=== PATIENT | male | born 1985 | race Caucasian/White ===

== ENCOUNTER → 2022-05-30 12:43 | Outpatient (BNVA) | payer BC, MEDICAID, SELFPAY | PROVIDERS: Visit Provider Nurse Practitioner | DX: R06.02 Shortness of breath (principal) | CPT/HCPCS: 71046 ==

== ENCOUNTER 2024-01-26 18:47 | Inpatient (IN) | payer SELFPAY ==
[2024-01-26] VITALS (11 sets, daily range): BP systolic 102–147; BP diastolic 59–81; PULSE 83–113; RESP 13–24; TEMP 36.5–36.6; O2SAT 92–100; BMI 25.0; BMI 23.7
[2024-01-26 19:54] LABS: Basophils % 0.3 %; Eosinophils # 0.1 10^3/uL (0.0-0.8); Eosinophils % 0.9 %; Hematocrit 37.1 % (37-53); Lymphocytes # 1.7 10^3/uL (0.8-4.8); Lymphocytes % 16.1 %; Mean Corpuscular HGB Conc 37.7 g/dL (30-55); Mean Corpuscular Hemoglobin 38.9 pg (27-33); Mean Corpuscular Volume 103.1 fl (82-101); Mean Platelet Volume 9.7 fL (7.4-10.4); Monocytes # 1.5 10^3/uL (0.2-0.9); Monocytes % 14.4 %; Neutrophils # 7.12 10^3/uL (1.8-7.7); Neutrophils % 67.4 %; Nucleated Red Blood Cells # 0.1 /100WBC; Nucleated Red Blood Cells % 0.9 %; Platelet Count 262 10^3/cmm (157-399); Red Cell Distribution Width 13.2 % (12.1-15.1); White Blood Count 10.56 10^3/uL (3.29-11.43)
[2024-01-26 20:23] LABS: Alanine Aminotransferase 147 U/L (0-41); Albumin Level 4.5 g/dL (3.5-5.2); Alcohol Level 60 mg/dL (0-10); Alkaline Phosphatase 115 U/L (40-130); Anion Gap 24.1 (5-19); Aspartate Amino Transferase 148 U/L (0-40); Blood Urea Nitrogen 38 mg/dL (6-20); Calcium 10.1 mg/dL (8.5-10.5); Carbon Dioxide 28 mmol/L (22-29); Chloride 77 mmol/L (98-107); Creatinine Clr Calc Pharmacy 85.4355; Globulin 3.2 g/dL (1.3-4.6); Glomerular Filtration Rate 68.5 mL/min (90-130); Glucose 144 mg/dL (65-115); Lipase 101 U/L (13-60); Magnesium 2.5 mg/dL (1.7-2.3); Osmolality Calculated 276 mOsm/kg (285-295); Sodium 127 mmol/L (136-145); Thyroid Stimulating Hormone 8.62 uIU/mL (0.27-4.20); Total Bilirubin 1.1 mg/dL (0.15-1.2); Total Protein 7.7 g/dL (6.6-8.7)
[2024-01-26 20:33] LABS: Potassium 2.1 mmol/L (3.5-5.1)
--- NOTE | 2024-01-26 20:48 | ED_ITS ---
HPI - Weakness 2 General: Chief complaint: Weakness Stated complaint: Dehydration, Hard time waalking, Fatiuge, N/V Time Seen by Provider: 01/26/24 20:36 Source: patient Mode of arrival: ambulatory Limitations: no limitations History of Present Illness: 38-year-old male who is a chronic alcoho lic states he has not seen a physician in years states that he has been having increasing weakness. He states that he has been having a hard time walking and is feeling extremely weak and fatigued. Denies any vomiting or diarrhea. Denies any fevers. Associated symptoms: Denies chest pain, chills, fever(s), headache(s), nausea or vomiting Review of Systems 2 Const: Reports: fatigue and malaise; Denies: fever(s), chills, body aches or change in appetite ENMT: Denies: throat pain or dental pain Card: Denies: chest pain Resp: Denies: dyspnea GI: Denies: abdominal pain, nausea, vomiting or diarrhea Musc: Denies: neck pain or back pain Skin/Breast: Denies: rash Neuro: Denies: headache(s) Physical Exam 2 Const: COMMON NORMALS: patient oriented x3 GENERAL APPEARANCE: ill appearing HENMT: COMMON NORMALS: normocephalic and atraumatic HEAD & SCALP: n ormocephalic and atraumatic Eye: COMMON NORMALS: Equal, round and reactive pupils present and EOMs intact bilaterally PUPIL: Yes Equal, round and reactive pupils present Neck/C-Spine: COMMON NORMALS: full ROM and supple Chest: COMMONS NORMALS: normal inspection of the chest Resp: COMMON NORMALS: normal respiratory effort, No retractions, No use of accessory muscles and clear to auscultation bilaterally AUSCULTATION: clear to auscultation bilaterally Cardio: COMMON NORMALS: regular rhythm and No murmurs present (Cardio) R ATE: tachycardic RHYTHM: regular rhythm Extremity: COMMON NORMALS: normal to inspection and full ROM Neuro: COMMON NORMALS: patient oriented x3, moves all extremities and no focal motor deficits Psych: COMMON NORMALS: mental status grossly normal, Normal thought process present and cooperative THOUGHT PROCESS: Normal thought process present Skin: COMMON NORMALS: no rashes or lesions noted and no wounds GENERAL SKIN EXAM: no rashes or lesions noted Course 2 Vital Signs: Vital signs: Vital Signs Temperature 98 F 01/26/24 19:00 Pulse Rate 113 H 01/26/24 21:00 Respiratory Rate 15 01/26/24 21:00 Blood Pressure 102/59 01/26/24 19:00 Pulse Oximetry 100 01/26/24 21:00 Oxygen Delivery Me thod Room Air 01/26/24 21:00 MDM - Weakness Medical Decision Making Patient presents here with weakness he is found to be profoundly hypokalemic with a potassium of 2.1 likely malnourished from his alcoholism had some slight tachycardia here no tremors no signs of active withdrawal as did give him thiamine along with a multivitamin did give him some Ativan and will replace potassium spoke to the hospitalist will admit to ICU Medical Records I reviewed the patient's medical records. Lab Data I reviewed the patient's lab results. 01/26/24 19:26 01/26/24 19:26 Laboratory Results WBC 10.56 10^3/uL (3.29-11.43) 01/26/24 19:26 RBC 3.60 10^6/uL (3.85-5.65) L 01/26/24 19:26 Hgb 14.00 g/dL (11.27-16.99) 01/26/24 19:26 Hct 37.1 % (37-53) 01/26/24 19:26 MCV 103.1 fl (82-101) H 01/26/24 19:26 MCH 38.9 pg (27-33) H 01/26/24 19:26 MCHC 37.7 g/dL (30-55) 01/26/24 19:26 RDW 13.2 % (12.1-15.1) 01/26/24 19:26 Plt Count 262 10^3/cmm (157-399) 01/26/24 19:26 MPV 9.7 fL (7.4-10.4) 01/26/24 19:26 Neut % (Auto) 67.4 % 01/26/24 19:26 Lymph % (Auto) 16.1 % 01/26/24 19:26 [place] % (Auto) 14.4 % 01/26/24 19:26 Eos % (Auto) 0.9 % 01/26/24 19:26 Baso % (Auto) 0.3 % 01/26/24 19:26 Neut # (Auto) 7.12 10^3/uL (1.8-7.7) 01/26/24 19:26 Lymph # (Auto) 1.7 10^3/uL (0.8-4.8) 01/26/24 19:26 [place] # (Auto) 1.5 10^3/uL (0.2-0.9) H 01/26/24 19:26 Eos # (Auto) 0.1 10^3/uL (0.0-0.8) 01/26/24 19:26 Baso # (Auto) 0.0 10^3/uL (0.0-0.1) 01/26/24 19:26 Nucleated RBC % (auto) 0.9 % 01/26/24 19:26 Nucleated RBCs # 0.1 /100WBC 01/26/24 19:26 Sodium 127 mmol/L (136-145) L 01/26/24 19:26 Potassium 2.1 mmol/L (3.5-5.1) L* 01/26/24 19:26 Chloride 77 mmol/L (98-107) L 01/26/24 19:26 Carbon Dioxide 28 mmol/L (22-29) 01/26/24 19:26 Anion Gap 24.1 (5-19) H 01/26/24 19:26 BUN 38 mg/dL (6-20) H 01/26/24 19:26 Creatinine 1.2 mg/dL (0.7-1.2) 01/26/24 19:26 GFR Calculation 68.5 mL/min (90-130) L 01/26/24 19:26 Glucose 144 mg/dL (65-115) H 01/26/24 19:26 Calculated Osmolality 276 mOsm/kg (285-295) L 01/26/24 19:26 Calcium 10.1 mg/dL (8.5-10.5) 01/26/24 19:26 Magnesium 2.5 mg/dL (1.7-2.3) H 01/26/24 19:26 Total Bilirubin 1.1 mg/dL (0.15-1.2) 01/26/24 19:26 AST 148 U/L (0-40) H 01/26/24 19:26 ALT 147 U/L (0-41) H 01/26/24 19:26 Alkaline Phosphatase 115 U/L (40-130) 01/26/24 19:26 Total Protein 7.7 g/dL (6.6-8.7) 01/26/24 19:26 Albumin 4.5 g/dL (3.5-5.2) 01/26/24 19:26 Globulin 3.2 g/dL (1.3-4.6) 01/26/24 19:26 Lipase 101 U/L (13-60) H 01/26/24 19:26 TSH 8.62 uIU/mL (0.27-4.20) H 01/26/24 19:26 Ethyl Alcohol 60 mg/dL (0-10) H 01/26/24 19:26 No radiology studies performed this visit EKG Data EKG 1: I personally reviewed and interpreted this EKG as follows: EKG interpretation date: 01/26/24 EKG interpretation time: 20:53 Interpretation: sinus tach hr [address] elevation qrs 110 qtc 464 Critical Care Time 2 Critical Care Time: Critical Care Time: Yes Total Critical Care Time: 45 Attestation: The high probability of a clinically significant, sudden or life threatening deterioration of the patient's electrolytes system(s) required my full and direct attention, intervention and personal management. The critical care time is as shown. This time is in addition to time spent performing any reported procedures but includes the following: [x] Data and vital sign review and interpretation [x] Patient assessment, examination and intervention [x] Documentation [x] Medication orders and management Discharge Plan Discharge Patient Disposition: Admitted As Inpatient Clinical Impression: Hypokalemia, Alcoholism Condition: Stable Prescriptions: No Action doxycycline hyclate 100 mg capsule 100 mg PO BID 7 Days Qty: 14 0RF prednisone 20 mg tablet 20 mg PO DAILY 7 Days Qty: 7 0RF albuterol sulfate [Ventolin HFA] 90 mcg/actuation HFA aerosol inhaler 2 puff inhalation Q6H PRN (Reason: shortness of breath or wheezing) Qty: 8.5 0RF Coding Level of Care Code ED [employer]
--- NOTE | 2024-01-26 20:53 | ECG_ITS ---
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 Measurements Intervals [place] Rate: 106 P: 71 WA: 130 QRS: 72 QRSD: 110 T: 76 QT: 402 QTc: 536 Interpretive Statements SINUS TACHYCARDIA POSSIBLE RIGHT ATRIAL ENLARGEMENT [0.25mV P-WAVE] POSSIBLE LEFT ATRIAL ENLARGEMENT [-0.1mV P-WAVE IN V1/V2] INCOMPLETE RIGHT BUNDLE BRANCH BLOCK [90+ ms QRS DURATION, TERMINAL R IN V1/V2, 40+ ms S IN I/aVL/V4/V5/V6] NONSPECIFIC ST & T-WAVE ABNORMALITY ABNORMAL RHYTHM ECG No previous ECG available for comparison Electronically Signed On 01-27-2024 0:39:50 CDT by Jose Jimenez M.D. [id number]
[2024-01-26] MEDS: ondansetron 2 mg/ML SDV 2 mL 4 MG IVP (21:00)
[2024-01-26 21:01] LABS: Slide Review Slide Review Perform
[2024-01-26] MEDS: potassium chloride ER 20 mEq Tablet 80 MEQ PO (21:01)
[2024-01-26] MEDS: multivitamin therapeutic Tablet 1 TAB PO (21:01)
[2024-01-26] MEDS: sodium chloride 0.9% 1,000 ML 999 ML IV (21:01)
[2024-01-26] MEDS: LORazepam 2 mg/mL INJ 10 mL MDV 1 MG IVP (21:01)
[2024-01-26] MEDS: lidocaine 1% 5 ML in potassium chloride premix 100 ML 26.25 ML IV (21:03)
--- NOTE | 2024-01-26 21:23 | P.HP_ITS ---
Providers/Chief Complaint 2 Admitting Physician: Carlo Thomas MD Chief Complaint: Dehydration, Hard time waalking, Fatiuge, N/V History of Present Illness Alphonso Rae is a 38 year old male with a past medical history significant for alcohol use disorder who presents emergency department with diffuse weakness and altered mentation x 3 to 4 days. Patient reports he was in his usual state of health until about 3 to 4 days ago. He states that he has been confused and extremely weak. He reports that his family encouraged him to seek treatment. He notes that he uses alcohol daily. He states that his alcohol use is typically 2 beers per day. He reports occasional liquor use but none recently. Reports his last drink was yesterday. Ethyl alcohol level in the emergency department today was 60 mg/dL. He reports that he typically does have withdrawals when he quits drinking. He states last time he quit it took about a week to get better. He did not seek medical care at that time. He denies prior hospitalizations for alcohol withdrawal. Currently endorses associated nausea. Denies fevers or chills. In the emergency department, patient was found to be tachycardic. Blood pressure soft. Labs revealed macrocytosis, hyponatremia, hypochloremia, severe hypokalemia, azotemia, elevated liver function enzymes, and elevated TSH to 8.62. He was treated with IV thiamine, IV fluid bolus, p.o. and IV potassium replacement. Review of Systems 2 Narrative: A complete review of systems was obtained and is negative except as stated in HPI. Medications/Allergies Home Medications Medication Instructions Recorded Confirmed Last Taken Type albuterol sulfate 90 mcg/actuation 2 puff inhalation Q6H PRN 05/30/22 05/30/22 Unknown Rx aerosol inhaler (Ventolin HFA) shortness of breath or wheezing #8.5 grams doxycycline hyclate 100 mg capsule 100 mg PO BID 7 days #14 caps 05/30/22 05/30/22 Unknown Rx prednisone 20 mg tablet 20 mg PO DAILY 7 days #7 tabs 05/30/22 05/30/22 Unknown Rx Allergies Allergy/AdvReac Type Severity Reaction Status Date / Time No Known Allergies Allergy Unverified 05/30/22 12:13 PFSH Acute 2 PFSH: Medical History (Updated 01/26/24 @ 21:58 by Cralo Thomas MD) Tobacco use disorder Alcohol use disorder Surgical History (Updated 01/26/24 @ 21:49 by Carlo Thomas MD) Hx of foot surgery Family History (Updated 01/26/24 @ 21:50 by Carlo Thomas MD) Brother Alcohol dependence Social History (Updated 01/26/24 @ 21:55 by Carlo Thomas MD) Smoking and tobacco/nicotine status: current every day tobacco/nicotine user Alcohol intake: current Substance/Drug Use: never 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 Vitals/I&O/Wt Last Vital Signs Temp 98 F 01/26/24 19:00 Pulse 113 H 01/26/24 21:00 Resp 15 01/26/24 21:00 BP 102/59 01/26/24 19:00 Pulse Ox 100 01/26/24 21:00 O2 Del Method Room Air 01/26/24 21:00 Weight last 48 hrs Weight 74.843 kg Physical Exam 2 Narrative: General: Patient is awake. Head: Normocephalic. Dry mucous membranes. Neck: No JVD. Cardiovascular: Tachycardic. No gallops. No murmurs. No peripheral edema. Lungs: Clear to auscultation, no use of accessory muscles, no crackles or wheezes. Skin: No jaundice. No rashes. Abdomen: Normal bowel sounds, abdomen soft and nontender. Genito Urinary: Genital exam not performed since complaints not related. Rectal: Rectal exam not performed since no symptoms indicated blood loss. Extremities: No cyanosis or clubbing. Musculoskeletal: No swollen or erythematous joints. Neurological: Moves all 4 extremities. Mildly tremulous at times. Data 01/26/24 19:26 01/26/24 19:26 A&P Assessment and plan (1) Alcohol use disorder: Alcohol use disorder with abuse Patient showing signs of withdrawal, admission EtOH 60 Reported confusion at home consistent with delirium tremens Admit to intensive care unit Start CIWA protocol Thiamine, folic acid, multivitamin Seizure precautions Case management consult Supportive care (2) Hypokalemia: Severe hypokalemia secondary to alcoholism Starting p.o. and IV replacement Continuous telemetry monitoring Will repeat potassium level after initial IV replacement Magnesium level is not low, continue to monitor (3) Hyponatremia: Hypovolemic hyponatremia/hypochloremia secondary to severe dehydration from alcohol use Patient currently receiving IV fluids via potassium replacement Will start normal saline infusion later this evening after IV potassium is all infused Start with regular diet, monitor symptomatology closely; may need to reconsider if he becomes more nauseous (4) Macrocytosis: Starting empiric folic acid replacement as above Will check B12 level (5) Acute kidney injury: Admission creatinine 1.2, previously 0.7 Suspect prerenal second alcoholism and dehydration Starting IV fluids Avoid nephrotoxins Strict I's and O's Repeat renal panel in a.m. (6) Transaminitis: AST/ALT elevated due to alcohol abuse Trend underlying alcoholism as above Repeat liver function enzymes in a.m. Avoid hepatotoxins (7) Abnormal thyroid function test: TSH 8.62, follow-up free T4 Will need ongoing thyroid monitoring as outpatient after recovery (8) Tobacco use disorder: Patient would benefit from tobacco cessation Offered continue nicotine replacement option, patient currently declines Plan DVT prophylaxis: Heparin CODE STATUS: Full code Attestations 2 Medical Necessity Statement*: Patient presents with alcohol withdrawal in the setting of suspected severe alcohol use disorder with abuse with history supportive of delirium tremens, severe dehydration, severe life-threatening hypokalemia with expected hospitalization to cross 2 midnights to treat alcohol withdrawal, delirium tremens, electrolyte management, IV fluids, and supportive care. Coding Level of Care Code Acute Code for [facility] Fwd Diagnoses Alcohol use disorder F10.90 Hypokalemia E87.6 Hyponatremia E87.1 Macrocytosis D75.89 Acute kidney injury N17.9 Transaminitis R74.01 Abnormal thyroid function test R94.6 Tobacco use disorder F17.200
--- NOTE | 2024-01-26 21:30 | PC.NURSE ---
Admitted from ER to ICU room 5. Awake, alert, and oriented x 4. No reports of pain or n/v at present time. Dr. Thomas to bedside. NS bolus and 40meq K infusing IV. Oriented to ICU and patient room. All belongings kept at bedside per patient request. Howard reported in wallet, counted howard at bedside with Charly security analyst and AMIRAH Perkins. $2,628 dollars in bills in patients wallet.
[2024-01-26] MEDS: heparin 5,000 unit/mL INJ 1 mL 5000 UNIT SUBCUT (22:26)
[2024-01-27] VITALS (24 sets, daily range): BP systolic 99–131; BP diastolic 65–88; PULSE 70–96; RESP 13–26; TEMP 36.4–36.8; O2SAT 96–100
[2024-01-27 00:03] LABS: Free T4 Free Thyroxine 1.03 ng/dL (0.82-1.77)
[2024-01-27 01:57] LABS: Albumin Level 3.8 g/dL (3.5-5.2); Anion Gap 15.4 (5-19); Blood Urea Nitrogen 35 mg/dL (6-20); Carbon Dioxide 34 mmol/L (22-29); Chloride 82 mmol/L (98-107); Creatinine Clr Calc Pharmacy 93.9661; Glomerular Filtration Rate 75.7 mL/min (90-130); Glucose 94 mg/dL (65-115); Phosphorus 3.3 mg/dL (2.5-4.5); Potassium 3.4 mmol/L (3.5-5.1); Sodium 128 mmol/L (136-145)
[2024-01-27] MEDS: potassium chloride ER 20 mEq Tablet PO (02:27)
[2024-01-27] MEDS: sodium chlor 0.9% + KCl 40 mEq 40 MEQ/1,000 ML BAG 75 MEQ IV (02:29)
[2024-01-27 02:42] LABS: Vitamin B12 > 2000 pg/mL (232-1245)
[2024-01-27 04:59] LABS: Basophils % 0.3 %; Eosinophils # 0.1 10^3/uL (0.0-0.8); Eosinophils % 1.6 %; Hematocrit 31.8 % (37-53); Lymphocytes # 1.9 10^3/uL (0.8-4.8); Lymphocytes % 30.8 %; Mean Corpuscular HGB Conc 37.1 g/dL (30-55); Mean Corpuscular Hemoglobin 38.9 pg (27-33); Mean Platelet Volume 9.8 fL (7.4-10.4); Monocytes # 0.9 10^3/uL (0.2-0.9); Monocytes % 15.2 %; Neutrophils # 3.14 10^3/uL (1.8-7.7); Neutrophils % 51.4 %; Nucleated Red Blood Cells # 0.1 /100WBC; Nucleated Red Blood Cells % 0.8 %; Platelet Count 178 10^3/cmm (157-399); Red Blood Count 3.03 10^6/uL (3.85-5.65); Red Cell Distribution Width 13.5 % (12.1-15.1); White Blood Count 6.11 10^3/uL (3.29-11.43)
[2024-01-27 05:25] LABS: Add Urine Microscopic? YES; Bilirubin Urine 1+ (Negative); Blood Urine Neg (Negative); Glucose Urine UA Norm (Normal); Ketones Urine 1+ (Negative); Leukocyte Esterase Urine Negative (Negative); Nitrate Urine Negative (Negative); Protein Urine Trace (Negative); Specific Gravity, Urine 1.015 (1.005-1.030); Urine Appearance Slightly Cloudy (CLEAR); Urine Color Dark Yellow (Yellow); Urobilinogen Urine 1 mg/dL (Negative); pH Urine 5 (5-7)
[2024-01-27 05:26] LABS: RBC Urine 0-4 /hpf (0-2)
[2024-01-27 05:27] LABS: Add Urine Culture? No; Bacteria Urine TRACE /hpf; Coarse Granular Casts Urine 0-4 /lpf; Mucus Urine 4+ /hpf; Transitional Epi Cells Urine 0-4 /hpf
[2024-01-27 05:27] LABS: Alanine Aminotransferase 115 U/L (0-41); Albumin Level 3.7 g/dL (3.5-5.2); Alkaline Phosphatase 91 U/L (40-130); Anion Gap 14.4 (5-19); Aspartate Amino Transferase 125 U/L (0-40); Blood Urea Nitrogen 36 mg/dL (6-20); Calcium 8.8 mg/dL (8.5-10.5); Carbon Dioxide 35 mmol/L (22-29); Chloride 83 mmol/L (98-107); Creatinine Clr Calc Pharmacy 103.3627; Globulin 2.5 g/dL (1.3-4.6); Glomerular Filtration Rate 84.5 mL/min (90-130); Glucose 95 mg/dL (65-115); Magnesium 2.4 mg/dL (1.7-2.3); Osmolality Calculated 276 mOsm/kg (285-295); Phosphorus 2.9 mg/dL (2.5-4.5); Potassium 3.4 mmol/L (3.5-5.1); Sodium 129 mmol/L (136-145); Total Bilirubin 0.9 mg/dL (0.15-1.2); Total Protein 6.2 g/dL (6.6-8.7)
[2024-01-27] MEDS: nicotine 21 mg Patch 1 PATCH TRANSDERMA (07:18)
[2024-01-27] MEDS: ondansetron 2 mg/ML SDV 2 mL 4 MG IVP (08:28)
[2024-01-27] MEDS: folic acid 1 mg Tablet PO (08:28)
[2024-01-27] MEDS: thiamine 100 mg Tablet PO (08:28)
[2024-01-27] MEDS: heparin 5,000 unit/mL INJ 1 mL 5000 UNIT SUBCUT ×2 (08:28→20:56)
[2024-01-27] MEDS: multivitamin therapeutic Tablet 1 TAB PO (08:28)
--- NOTE | 2024-01-27 08:32 | PC.PHAR ---
Addendum entered by Kristan Preciado 01/27/24 08:34: SPOKE TO KEON (M0M) WHO STATES SHE DOES NOT KNOW IF PT TAKES ANYTHING OVER THE COUNTER OR PRESCRIPTION. Original Note: PT HAS NOT FILLED MEDICATIONS INTERNALLY OR EXTERNALLY SINCE 2021.
--- NOTE | 2024-01-27 13:33 | P.PN_ITS ---
Subjective 2 Subjective: Denies nausea, vomiting Sodium 129, potassium 3.4, bicarb 35. Has received 1 dose of Ativan since admission. Resting comfortably in bed. Earlier patient's mom informed nursing staff that he tends to induce vomiting and has bulimia? Vitals/I&O/Wt Last Vital Signs Temp 97.9 F 01/27/24 07:55 Pulse 93 01/27/24 13:00 Resp 20 H 01/27/24 13:00 BP 120/88 01/27/24 13:00 Pulse Ox 97 01/27/24 13:00 O2 Del Method Room Air 01/27/24 13:00 01/26/24 01/27/24 01/27/24 22:59 06:59 14:59 Intake Total 1000 / 1000 205 / 1205 560 / 560 Output Total 375 / 375 Balance 1000 / 1000 -170 / 830 560 / 560 Weight last 48 hrs Weight 72.847 kg Weight 72.847 kg Weight 74.843 kg Physical Exam 2 Narrative: Resting comfortably in bed no acute distress Normal S1-S2 Abdomen soft nontender Extremities unremarkable Lungs clear to auscultation bilaterally RN at bedside. Data 01/27/24 04:29 01/27/24 04:29 A&P Assessment and plan (1) Alcohol use disorder: Alcohol use disorder with abuse Patient showing signs of withdrawal, admission EtOH 60 Reported confusion at home consistent with delirium tremens Admit to intensive care unit Start CIWA protocol Thiamine, folic acid, multivitamin Seizure precautions Case management consult Supportive care (2) Hypokalemia: Severe hypokalemia secondary to alcoholism Starting p.o. and IV replacement Continuous telemetry monitoring Will repeat potassium level after initial IV replacement Magnesium level is not low, continue to monitor (3) Hyponatremia: Hypovolemic hyponatremia/hypochloremia secondary to severe dehydration from alcohol use Patient currently receiving IV fluids via potassium replacement Will start normal saline infusion later this evening after IV potassium is all infused Start with regular diet, monitor symptomatology closely; may need to reconsider if he becomes more nauseous (4) Macrocytosis: Starting empiric folic acid replacement as above Will check B12 level (5) Acute kidney injury: Admission creatinine 1.2, previously 0.7 Suspect prerenal second alcoholism and dehydration Starting IV fluids Avoid nephrotoxins Strict I's and O's Repeat renal panel in a.m. (6) Transaminitis: AST/ALT elevated due to alcohol abuse Trend underlying alcoholism as above Repeat liver function enzymes in a.m. Avoid hepatotoxins (7) Abnormal thyroid function test: TSH 8.62, follow-up free T4 Will need ongoing thyroid monitoring as outpatient after recovery (8) Tobacco use disorder: Patient would benefit from tobacco cessation Offered continue nicotine replacement option, patient currently declines Plan DVT prophylaxis: Heparin CODE STATUS: Full code Today's plan 01/26 ? Continue gentle fluid IV hydration with normal saline 125 cc/h ? Liver enzymes are trending down. Repeat BMP in evening Once electrolytes are normalized patient may be able to discharge home. Will discuss with him regarding bulimia and vomiting episodes. I would encourage him to discuss that with his primary care doctor for further treatment. [facility]. Attestations 2 Medical Necessity Statement*: Requires IV fluid hydration for abnormal electrolytes. Plan to discharge in a.m. Diagnoses Alcohol use disorder F10.90 Hypokalemia E87.6 Hyponatremia E87.1 Macrocytosis D75.89 Acute kidney injury N17.9 Transaminitis R74.01 Abnormal thyroid function test R94.6 Tobacco use disorder F17.200
[2024-01-27] MEDS: ibuprofen 200 mg Tablet 400 MG PO (13:46)
[2024-01-27 13:58] LABS: Anion Gap 14.6 (5-19); Blood Urea Nitrogen 29 mg/dL (6-20); Calcium 8.8 mg/dL (8.5-10.5); Carbon Dioxide 30 mmol/L (22-29); Chloride 87 mmol/L (98-107); Creatinine Clr Calc Pharmacy 114.8475; Glomerular Filtration Rate 95.5 mL/min (90-130); Glucose 101 mg/dL (65-115); Osmolality Calculated 272 mOsm/kg (285-295); Potassium 3.6 mmol/L (3.5-5.1); Sodium 128 mmol/L (136-145)
--- NOTE | 2024-01-27 14:23 | PC.NURSE ---
Report called to Tiana. Patient and belongings taken to room 261-1 via wheel chair. Family at bedside.
[2024-01-27] MEDS: sodium chlor 0.9% + KCl 40 mEq 40 MEQ/1,000 ML BAG 125 MEQ IV ×2 (14:59→21:06)
--- NOTE | 2024-01-27 15:06 | PC.NURSE ---
Pt noted to be vaping in room. Vape placed into Pyxis with lighters. Educated on hospital policies.
[2024-01-27] MEDS: nicotine 4 mg lozenge MUCOUS MEM (20:56)
[2024-01-27] MEDS: calcium carbonate 500 mg Chew Tablet 1000 MG PO (21:05)
[2024-01-28] VITALS: BP 129/84; PULSE 86; RESP 17; TEMP 36.7; O2SAT 100
[2024-01-28 04:00] VITALS: BP 109/74; PULSE 84; RESP 16; TEMP 36.7; O2SAT 98
[2024-01-28] MEDS: sodium chlor 0.9% + KCl 40 mEq 40 MEQ/1,000 ML BAG 125 MEQ IV (04:15)
[2024-01-28] MEDS: ibuprofen 200 mg Tablet 400 MG PO (04:19)
[2024-01-28 05:24] LABS: Basophils % 0.7 %; Eosinophils # 0.1 10^3/uL (0.0-0.8); Eosinophils % 2.3 %; Hematocrit 27.4 % (37-53); Lymphocytes # 1.8 10^3/uL (0.8-4.8); Lymphocytes % 41.4 %; Mean Corpuscular HGB Conc 34.7 g/dL (30-55); Mean Corpuscular Hemoglobin 38.8 pg (27-33); Mean Corpuscular Volume 111.8 fl (82-101); Mean Platelet Volume 9.9 fL (7.4-10.4); Monocytes # 0.5 10^3/uL (0.2-0.9); Monocytes % 11.8 %; Neutrophils # 1.91 10^3/uL (1.8-7.7); Neutrophils % 43.1 %; Nucleated Red Blood Cells % 0.9 %; Platelet Count 153 10^3/cmm (157-399); Red Blood Count 2.45 10^6/uL (3.85-5.65); Red Cell Distribution Width 13.7 % (12.1-15.1); White Blood Count 4.42 10^3/uL (3.29-11.43)
[2024-01-28 05:26] VITALS: PULSE 77
[2024-01-28 05:48] LABS: Anion Gap 11.7 (5-19); Blood Urea Nitrogen 26 mg/dL (6-20); Calcium 8.2 mg/dL (8.5-10.5); Carbon Dioxide 27 mmol/L (22-29); Chloride 98 mmol/L (98-107); Creatinine Clr Calc Pharmacy 133.7895; Glomerular Filtration Rate 109.4 mL/min (90-130); Glucose 102 mg/dL (65-115); Magnesium 2.1 mg/dL (1.7-2.3); Osmolality Calculated 281 mOsm/kg (285-295); Potassium 3.7 mmol/L (3.5-5.1); Sodium 133 mmol/L (136-145)
[2024-01-28 07:44] VITALS: BP 109/54; PULSE 78; RESP 16; TEMP 36.8; O2SAT 98
[2024-01-28] MEDS: heparin 5,000 unit/mL INJ 1 mL 5000 UNIT SUBCUT (08:39)
[2024-01-28] MEDS: folic acid 1 mg Tablet PO (08:39)
[2024-01-28] MEDS: multivitamin therapeutic Tablet 1 TAB PO (08:39)
[2024-01-28] MEDS: thiamine 100 mg Tablet PO (08:39)
[2024-01-28] MEDS: nicotine 21 mg Patch 1 PATCH TRANSDERMA (08:40)
--- NOTE | 2024-01-28 10:13 | PM.DCS ---
Discharge Providers Date of Admission: 01/26/24 21:15 Date of Discharge: January 28, 2024 Attending Provider at Admission: Carlo Thomas MD Attending Provider at Discharge: Katiana Muñiz MD Diagnoses at Discharge Discharge Diagnosis (1) Alcohol use disorder: Status: Acute (2) Hypokalemia: Status: Resolved (3) Hyponatremia: Status: Acute (4) Macrocytosis: Status: Acute (5) Acute kidney injury: Status: Resolved (6) Transaminitis: Status: Resolved (7) Abnormal thyroid function test: Status: Acute (8) Tobacco use disorder: Status: Acute Reason for Visit Reason for Visit: Dehydration, Hard time waalking, Fatiuge, N/V Hospital Course Hospital Course Presented to the hospital with altered mentation, diffuse weakness secondary to alcohol use disorder. Patient drinks vodka daily. He says he has no intentions of quitting. During hospital stay was given thiamine, potassium, phosphorus, magnesium, fluid bolus and kept on IV fluids. Denies any nausea vomiting prior to admission. Patient's mother did report that he was bulimic to the nursing staff. When discussed with patient he stated this was years and years ago and this is no longer an issue. He does not have a primary care doctor either. He was set up with Dr. Salazar at discharge. Electrolytes have all normalized at discharge and patient is not withdrawing from alcohol. He was sent home on folic acid and thiamine and encouraged to take a multivitamin daily. He is agreeable. Physical Exam Narrative: Resting comfortably in bed no acute distress Normal S1-S2 Abdomen soft nontender Extremities unremarkable Lungs clear to auscultation bilaterally RN at bedside. Discharge Data Studies Completed and Pending Laboratory Results WBC 4.42 10^3/uL (3.29-11.43) 01/28/24 04:16 RBC 2.45 10^6/uL (3.85-5.65) L 01/28/24 04:16 Hgb 9.50 g/dL (11.27-16.99) L 01/28/24 04:16 Hct 27.4 % (37-53) L 01/28/24 04:16 MCV 111.8 fl (82-101) H D 01/28/24 04:16 MCH 38.8 pg (27-33) H 01/28/24 04:16 MCHC 34.7 g/dL (30-55) D 01/28/24 04:16 RDW 13.7 % (12.1-15.1) 01/28/24 04:16 Plt Count 153 10^3/cmm (157-399) L 01/28/24 04:16 MPV 9.9 fL (7.4-10.4) 01/28/24 04:16 Neut % (Auto) 43.1 % 01/28/24 04:16 Lymph % (Auto) 41.4 % 01/28/24 04:16 [place] % (Auto) 11.8 % 01/28/24 04:16 Eos % (Auto) 2.3 % 01/28/24 04:16 Baso % (Auto) 0.7 % 01/28/24 04:16 Neut # (Auto) 1.91 10^3/uL (1.8-7.7) 01/28/24 04:16 Lymph # (Auto) 1.8 10^3/uL (0.8-4.8) 01/28/24 04:16 [place] # (Auto) 0.5 10^3/uL (0.2-0.9) 01/28/24 04:16 Eos # (Auto) 0.1 10^3/uL (0.0-0.8) 01/28/24 04:16 Baso # (Auto) 0.0 10^3/uL (0.0-0.1) 01/28/24 04:16 Nucleated RBC % (auto) 0.9 % 01/28/24 04:16 Nucleated RBCs # 0.0 /100WBC 01/28/24 04:16 Sodium 133 mmol/L (136-145) L 01/28/24 04:16 Potassium 3.7 mmol/L (3.5-5.1) 01/28/24 04:16 Chloride 98 mmol/L (98-107) 01/28/24 04:16 Carbon Dioxide 27 mmol/L (22-29) 01/28/24 04:16 Anion Gap 11.7 (5-19) 01/28/24 04:16 BUN 26 mg/dL (6-20) H 01/28/24 04:16 Creatinine 0.8 mg/dL (0.7-1.2) 01/28/24 04:16 GFR Calculation 109.4 mL/min (90-130) 01/28/24 04:16 Glucose 102 mg/dL (65-115) 01/28/24 04:16 Calculated Osmolality 281 mOsm/kg (285-295) L 01/28/24 04:16 Calcium 8.2 mg/dL (8.5-10.5) L 01/28/24 04:16 Phosphorus 2.9 mg/dL (2.5-4.5) 01/27/24 04:29 Magnesium 2.1 mg/dL (1.7-2.3) 01/28/24 04:16 Total Bilirubin 0.9 mg/dL (0.15-1.2) 01/27/24 04:29 AST 125 U/L (0-40) H 01/27/24 04:29 ALT 115 U/L (0-41) H 01/27/24 04:29 Alkaline Phosphatase 91 U/L (40-130) 01/27/24 04:29 Total Protein 6.2 g/dL (6.6-8.7) L 01/27/24 04:29 Albumin 3.7 g/dL (3.5-5.2) 01/27/24 04:29 Globulin 2.5 g/dL (1.3-4.6) 01/27/24 04:29 Lipase 101 U/L (13-60) H 01/26/24 19:26 Vitamin B12 > 2000 pg/mL (232-1245) H 01/26/24 19:26 TSH 8.62 uIU/mL (0.27-4.20) H 01/26/24 19:26 Free T4 1.03 ng/dL (0.82-1.77) 01/26/24 19:26 Urine Color Dark yellow (Yellow) 01/27/24 05:10 Urine Appearance Slightly cloudy (CLEAR) 01/27/24 05:10 Urine pH 5 (5-7) 01/27/24 05:10 Ur Specific [place] 1.015 (1.005-1.030) 01/27/24 05:10 Urine Protein Trace (Negative) 01/27/24 05:10 Urine Glucose (UA) Norm (Normal) 01/27/24 05:10 Urine Ketones 1+ (Negative) H 01/27/24 05:10 Urine Blood Neg (Negative) 01/27/24 05:10 Urine Nitrate Negative (Negative) 01/27/24 05:10 Urine Bilirubin 1+ (Negative) H 01/27/24 05:10 Urine Urobilinogen 1 mg/dL (Negative) H 01/27/24 05:10 Ur Leukocyte Esterase Negative (Negative) 01/27/24 05:10 Urine RBC 0-4 /hpf (0-2) H 01/27/24 05:10 Urine WBC 5-10 /hpf (0-5) H 01/27/24 05:10 Ur Squamous Epith Cells None /hpf (0-5) 01/27/24 05:10 Ur Transition Epith Cell 0-4 /hpf 01/27/24 05:10 Amorphous Sediment Not Reportable 01/27/24 05:10 Urine Bacteria Trace /hpf (NONE) 01/27/24 05:10 Hyaline Casts 5-10 /lpf H 01/27/24 05:10 Coarse Granular Casts 0-4 /lpf H 01/27/24 05:10 Urine Mucus 4+ /hpf 01/27/24 05:10 Ethyl Alcohol 60 mg/dL (0-10) H 01/26/24 19:26 Vitals Last Vital Signs Temp 98.3 F 01/28/24 07:44 Pulse 78 01/28/24 07:44 Resp 16 01/28/24 07:44 BP 109/54 01/28/24 07:44 Pulse Ox 98 01/28/24 07:44 O2 Del Method Room Air 01/28/24 07:44 Discharge Plan Discharge Patient Disposition: Home Condition: Stable Prescriptions: New folic acid 1 mg Tablet 1 mg PO DAILY Qty: 30 0RF Vitamin B-1 (mononitrate) 100 mg Tablet 100 mg PO DAILY Qty: 30 0RF Discharge Orders: Discharge Order (Routine); Ordered 01/28/24 Ordered By: Katiana Muñiz Referrals: Kwan Salazar MD [Physician] - 02/09/24 8:00 am Discharge Diet: Regular Discharge Activity: Resume usual activity Patient Instructions: Thiamine (By mouth), Folic Acid (By mouth), Acute Kidney Injury (GEN), Opioid Safety Discharge Attestations Time Spent in Discharge Care*: greater than 30 min Quality Metrics Clinical Quality Measures [ No reported AMI, CVA or VTE this stay] Coding Level of Care Code 46757 Total time (in minutes) for Discharge: 25 Diagnoses Alcohol use disorder F10.90 Hypokalemia E87.6 Hyponatremia E87.1 Macrocytosis D75.89 Acute kidney injury N17.9 Transaminitis R74.01 Abnormal thyroid function test R94.6 Tobacco use disorder F17.200
[2024-01-28 11:34] VITALS: BP 101/66; PULSE 81; RESP 18; TEMP 36.5; O2SAT 99
[2024-01-28 12:07] VITALS: BP 101/66; PULSE 81; RESP 18; TEMP 36.5; O2SAT 99
--- NOTE | 2024-01-28 12:47 | PC.NURSE ---
Patient AOX4, discharge packet reviewed, education on new medications and follow up appointment given, patient verbalizes understanding of all teachings. Patient brought via wheelchair to front entrance to wait for his transportation. ALL belongings with patient including clothing, cellphone, and wallet with all money. Patient verified belongings.
== END 2024-01-28 12:50 | disposition home or self-care (01) | DRG 641 ==
LOC: ER 21:11 → ICU 21:15 → MEDSURG 01-27 14:36
PROVIDERS: Admitting Provider Internal Medicine; Emergency Provider Emergency Medicine; Visit Provider Internal Medicine
DX: E87.6 Hypokalemia (principal); N17.9 Acute kidney failure, unspecified; E87.1 Hypo-osmolality and hyponatremia; Z72.0 Tobacco use; D75.89 Other specified diseases of blood and blood-forming organs; F10.10 Alcohol abuse, uncomplicated; Y90.3 Blood alcohol level of 60-79 mg/100 ml
CPT/HCPCS: 36415; 80048; 80053; 80069; 80307; 81001; 82607; 83690; 83735; 84100; 84439; 84443; 85025; 93005; 96365; 96372; 96374; 96375; 96376; 99285; J1644; J2060; J2405; J3411; J3480; J7030

== ENCOUNTER 2024-02-07 12:24 | Emergency (ER) | payer SELFPAY ==
[2024-02-07 12:30] VITALS: BP 134/87; PULSE 124; RESP 18; TEMP 36.6; O2SAT 98; BMI 26.6
[2024-02-07 12:45] VITALS: BP 134/81; PULSE 108; RESP 16; O2SAT 97
--- NOTE | 2024-02-07 12:48 | ECG_ITS ---
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 Measurements Intervals [place] Rate: 108 P: 68 TX: 133 QRS: 58 QRSD: 96 T: 64 QT: 339 QTc: 455 Interpretive Statements SINUS TACHYCARDIA POSSIBLE LEFT ATRIAL ENLARGEMENT [-0.1mV P-WAVE IN V1/V2] ABNORMAL RHYTHM ECG Compared to ECG 01/26/2024 20:53:19 Incomplete right bundle-branch block no longer present T-wave abnormality no longer present Electronically Signed On 02-10-2024 13:23:30 CDT by Mikhail Clifford M.D. [id number]
--- NOTE | 2024-02-07 12:55 | ED_ITS ---
HPI - General Adult 2 General: Chief complaint: General Medical Stated complaint: leg pain, numbness Time Seen by Provider: 02/07/24 12:42 Source: patient Mode of arrival: ambulatory Limitations: no limitations History of Present Illness: 38-year-old male with a history of alcoh olism he had been admitted little over a week ago for hypokalemia along with other lab abnormalities including hypomanic likely from his alcoholism he had had leg pain and weakness at the time patient states that since being discharged he still having some shooting pains down both legs with some fatigue denies any vomiting diarrhea he still has been drinking. Associated symptoms: Reports malaise; Deny chest pain, dyspnea, headache(s), nausea, rash or vomiting Review of Systems 2 Const: Reports: fatigue and malaise; Denies: fever(s), chills, body aches or change in appetite Eyes: Denies: blurry vision or eye discomfort ENMT: Denies: throat pain or dental pain Card: Denies: chest pain Resp: Denies: dyspnea GI: Denies: abdominal pain, nausea, vomiting or diarrhea Musc: Reports: extremity pain; Denies: neck pain or back pain Skin/Breast: Denies: rash Neuro: Denies: headache(s) Psych: Denies: depression PFSH ED 2 PFSH: Medical History Tobacco use disorder Alcohol use disorder Surgical History (Updated 01/26/24 @ 21:49 by Carlo Thomas MD) Hx of foot surgery Family History (Updated 01/26/24 @ 21:50 by Carlo Thomas MD) Brother Alcohol dependence Social History (Updated 01/26/24 @ 21:55 by Carlo Thomas MD) Smoking and tobacco/nicotine status: current every day tobacco/nicotine user Alcohol intake: current Substance/Drug Use: never 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 Physical Exam 2 Const: COMMON NORMALS: no acute distress, patient oriented x3 and healthy appearing HENMT: COMMON NORMALS: normocephalic and atraumatic HEAD & SCALP: n ormocephalic and atraumatic Eye: COMMON NORMALS: Equal, round and reactive pupils present and EOMs intact bilaterally PUPIL: Yes Equal, round and reactive pupils present Neck/C-Spine: COMMON NORMALS: full ROM and supple Chest: COMMONS NORMALS: normal inspection of the chest and normal palpation of entire chest wall Resp: COMMON NORMALS: normal respiratory effort, No retractions, No use of accessory muscles and clear to auscultation bilaterally AUSCULTATION: clear to auscultation bilaterally Cardio: COMMON NORMALS: regular rate, regular rhythm and No murmurs present (Cardio) RATE: regular rate RHYTHM: regular rhythm GI: COMMON NORMALS: Normal to inspection, nondistended, normoactive bowel sounds present, Soft to palpation, non-tender and no masses PALPATION: Yes Soft to palpation Extremity: COMMON NORMALS: normal to inspection and full ROM Neuro: COMMON NORMALS: patient oriented x3, moves all extremities and no focal motor deficits Psych: COMMON NORMALS: mental status grossly normal, Normal thought process present and cooperative THOUGHT PROCESS: Normal thought process present Skin: COMMON NORMALS: no rashes or lesions noted and no wounds GENERAL SKIN EXAM: no rashes or lesions noted Course 2 Vital Signs: Vital signs: Vital Signs Temperature 97.8 F 02/07/24 12:30 Pulse Rate 105 H 02/07/24 14:05 Respiratory Rate 18 02/07/24 14:05 Blood Pressure 141/102 02/07/24 14:05 Pulse Oximetry 100 02/07/24 14:05 Oxygen Delivery Me thod Room Air 02/07/24 12:45 MDM - General Adult Medical Decision Making Patient presents here with bilateral leg pain and some weakness he had been admitted a week ago for hypokalemia his potassium level here is normal his exam is benign his TSH level is elevated we will start him on a low-dose Synthroid he is follow-up with PCP and return if worsening he understands agrees to plan Medical Records I reviewed the patient's medical records. Lab Data I reviewed the patient's lab results. 02/07/24 12:58 02/07/24 12:58 Laboratory Results WBC 6.26 10^3/uL (3.29-11.43) 02/07/24 12:58 RBC 2.83 10^6/uL (3.85-5.65) L 02/07/24 12:58 Hgb 11.00 g/dL (11.27-16.99) L 02/07/24 12:58 Hct 31.7 % (37-53) L 02/07/24 12:58 MCV 112.0 fl (82-101) H 02/07/24 12:58 MCH 38.9 pg (27-33) H 02/07/24 12:58 MCHC 34.7 g/dL (30-55) 02/07/24 12:58 RDW 16.0 % (12.1-15.1) H 02/07/24 12:58 Plt Count 284 10^3/cmm (157-399) 02/07/24 12:58 MPV 9.3 fL (7.4-10.4) 02/07/24 12:58 Neut % (Auto) 64.7 % 02/07/24 12:58 Lymph % (Auto) 24.4 % 02/07/24 12:58 [place] % (Auto) 8.8 % 02/07/24 12:58 Eos % (Auto) 1.6 % 02/07/24 12:58 Baso % (Auto) 0.3 % 02/07/24 12:58 Neut # (Auto) 4.05 10^3/uL (1.8-7.7) 02/07/24 12:58 Lymph # (Auto) 1.5 10^3/uL (0.8-4.8) 02/07/24 12:58 [place] # (Auto) 0.6 10^3/uL (0.2-0.9) 02/07/24 12:58 Eos # (Auto) 0.1 10^3/uL (0.0-0.8) 02/07/24 12:58 Baso # (Auto) 0.0 10^3/uL (0.0-0.1) 02/07/24 12:58 Nucleated RBC % (auto) 0 % 02/07/24 12:58 Nucleated RBCs # 0.0 /100WBC 02/07/24 12:58 Sodium 138 mmol/L (136-145) 02/07/24 12:58 Potassium 3.4 mmol/L (3.5-5.1) L 02/07/24 12:58 Chloride 104 mmol/L (98-107) 02/07/24 12:58 Carbon Dioxide 19 mmol/L (22-29) L 02/07/24 12:58 Anion Gap 18.4 (5-19) 02/07/24 12:58 BUN 5 mg/dL (6-20) L 02/07/24 12:58 Creatinine 0.7 mg/dL (0.7-1.2) 02/07/24 12:58 GFR Calculation 127.6 mL/min (90-130) 02/07/24 12:58 Glucose 93 mg/dL (65-115) 02/07/24 12:58 Calculated Osmolality 283 mOsm/kg (285-295) L 02/07/24 12:58 Calcium 8.4 mg/dL (8.5-10.5) L 02/07/24 12:58 Magnesium 1.7 mg/dL (1.7-2.3) 02/07/24 12:58 Total Bilirubin 0.4 mg/dL (0.15-1.2) 02/07/24 12:58 AST 76 U/L (0-40) H 02/07/24 12:58 ALT 40 U/L (0-41) 02/07/24 12:58 Alkaline Phosphatase 89 U/L (40-130) 02/07/24 12:58 Total Protein 6.0 g/dL (6.6-8.7) L 02/07/24 12:58 Albumin 3.6 g/dL (3.5-5.2) 02/07/24 12:58 Globulin 2.4 g/dL (1.3-4.6) 02/07/24 12:58 TSH 10.70 uIU/mL (0.27-4.20) H 02/07/24 12:58 Ethyl Alcohol 80 mg/dL (0-10) H 02/07/24 12:58 All radiology interpretation(s) finalized by discharge EKG Data EKG 1: I personally reviewed and interpreted this EKG as follows: EKG interpretation date: 02/07/24 EKG interpretation time: 13:23 Interpretation: sinus tach hr [address] or t wave abnormalities qrs 96 qtc 402 Discharge Plan Discharge Patient Disposition: Home Clinical Impression: Hypothyroidism, Leg pain, bilateral Condition: Stable Prescriptions: New Synthroid 50 mcg tablet 50 mcg PO DAILY Qty: 30 0RF No Action folic acid 1 mg Tablet 1 mg PO DAILY Qty: 30 0RF Vitamin B-1 (mononitrate) 100 mg Tablet 100 mg PO DAILY Qty: 30 0RF Discharge Orders: Discharge ED (Routine); Ordered 02/07/24 Ordered By: Sanjay Green Discharge Diet: Advance as tolerated Discharge Activity: Resume usual activity Patient Instructions: Hypothyroidism (ED), Leg Pain (ED) Stand Alone Forms: Work/School Release Coding Level of Care Code ED [employer] for [employer]
[2024-02-07 13:05] VITALS: BP 128/89; PULSE 106; RESP 18; O2SAT 98
[2024-02-07 13:05] LABS: Basophils % 0.3 %; Eosinophils # 0.1 10^3/uL (0.0-0.8); Eosinophils % 1.6 %; Hematocrit 31.7 % (37-53); Lymphocytes # 1.5 10^3/uL (0.8-4.8); Lymphocytes % 24.4 %; Mean Corpuscular HGB Conc 34.7 g/dL (30-55); Mean Corpuscular Hemoglobin 38.9 pg (27-33); Mean Platelet Volume 9.3 fL (7.4-10.4); Monocytes # 0.6 10^3/uL (0.2-0.9); Monocytes % 8.8 %; Neutrophils # 4.05 10^3/uL (1.8-7.7); Neutrophils % 64.7 %; Nucleated Red Blood Cells % 0 %; Platelet Count 284 10^3/cmm (157-399); Red Blood Count 2.83 10^6/uL (3.85-5.65); White Blood Count 6.26 10^3/uL (3.29-11.43)
[2024-02-07 13:12] VITALS: RESP 16
[2024-02-07] MEDS: ondansetron 2 mg/ML SDV 2 mL 4 MG IVP (13:12)
[2024-02-07] MEDS: morphine 4 mg/mL SDV 1 mL IVP (13:12)
[2024-02-07] MEDS: sodium chloride 0.9% 1,000 ML 999 ML IV (13:13)
[2024-02-07] MEDS: multivitamin therapeutic Tablet 1 TAB PO (13:14)
[2024-02-07 13:32] LABS: Alanine Aminotransferase 40 U/L (0-41); Albumin Level 3.6 g/dL (3.5-5.2); Alcohol Level 80 mg/dL (0-10); Alkaline Phosphatase 89 U/L (40-130); Anion Gap 18.4 (5-19); Aspartate Amino Transferase 76 U/L (0-40); Blood Urea Nitrogen 5 mg/dL (6-20); Calcium 8.4 mg/dL (8.5-10.5); Carbon Dioxide 19 mmol/L (22-29); Chloride 104 mmol/L (98-107); Creatinine Clr Calc Pharmacy 154.9245; Globulin 2.4 g/dL (1.3-4.6); Glomerular Filtration Rate 127.6 mL/min (90-130); Glucose 93 mg/dL (65-115); Magnesium 1.7 mg/dL (1.7-2.3); Osmolality Calculated 283 mOsm/kg (285-295); Potassium 3.4 mmol/L (3.5-5.1); Sodium 138 mmol/L (136-145); Total Bilirubin 0.4 mg/dL (0.15-1.2)
[2024-02-07 14:05] VITALS: BP 141/102; PULSE 105; RESP 18; O2SAT 100
--- NOTE | 2024-02-07 16:12 | PC.NURSE ---
RX CALLED INTO [facility] ON [address].
== END 2024-02-07 14:21 | disposition home or self-care (01) ==
PROVIDERS: Emergency Provider Emergency Medicine
DX: R00.0 Tachycardia, unspecified (principal); E03.9 Hypothyroidism, unspecified; M79.605 Pain in left leg; M79.604 Pain in right leg; Z72.0 Tobacco use
CPT/HCPCS: 36415; 80053; 80307; 83735; 84443; 85025; 93005; 96374; 96375; 99284; J2270; J2405; J3411; J7030